=== PATIENT | female | born 1990 | race Caucasian/White ===

== ENCOUNTER 2016-08-10 08:34 | Observation (INO) | payer OTHER ==
[~2016-08-10] VITALS: Ht 165.1 cm; Wt 58.1 kg
[2016-08-10] VITALS (9 sets, daily range): BP systolic 97–129; BP diastolic 52–79
[~2016-08-10 08:34] MED LIST: CLARITIN10 M2 PO; IBUPROFEN 600600 M1 PO; NOHOMEMEDICATIONS; NORCO 5-325 TA1 EACH PO; ONDANSETRON HCL4 M2 PO; PRENATAL PO; VENTOLIN17 GM INH; VICOPROFEN 2001 EACH PO; VITAFOL-OB+DHA1 EACH PO
[2016-08-10 09:15] LABS: URINE BILIRUBIN NEGATIVE (Negative); URINE BLOOD TRACE (Negative); URINE COLOR YELLOW; URINE GLUCOSE-RANDOM* NEGATIVE (Negative); URINE KETONES NEGATIVE (Negative); URINE LEUKOCYTES-REFLEX TRACE (Negative); URINE PROTEIN (DIPSTICK) NEGATIVE (Negative); URINE UROBILINOGEN 0.2 E.U./dl (0.2-1.0)
[2016-08-10 09:25] LABS: ABSOLUTE NEUTROPHILS 3.1 thou/uL (1.4-8.2); BASOPHILS 0.8 % (0.0-2.0); EOSINOPHILS 3.8 % (0.0-3.0); HEMATOCRIT 37.8 % (37.0-47.0); HEMOGLOBIN 12.9 gm/dL (12.0-15.0); LYMPHOCYTES 23.9 % (24.0-44.0); MCH 29.2 pg (26.0-34.0); MCV 85.9 fL (80.0-100.0); MONOCYTES 9.2 % (1.0-8.0); PLATELET COUNT 230 thou/uL (150-400); POLYS 62.3 % (36.0-66.0)
[2016-08-10 09:27] LABS: MANUAL DIFF NO
[2016-08-10 09:34] LABS: CALCIUM 9.1 mg/dL (8.5-10.1); CREATININE 0.7 mg/dL (0.6-1.0); POTASSIUM 3.9 mmol/L (3.5-5.1)
[2016-08-10 09:40] LABS: ALBUMIN 4.6 g/dL (3.4-5.0); TOTAL BILIRUBIN 0.4 mg/dL (<0.1-1.0)
[2016-08-10] MEDS ORDERED: PRILOSEC 20 MG20 MG PO (10:10)
[2016-08-10] MEDS ORDERED: ZOFRAN ODT8 MG PO (10:10)
[2016-08-10] MEDS ORDERED: TRAMADOL 50 MG50 MG PO (10:10)
[2016-08-11 04:00] VITALS: BP 113/52
[2016-08-11 04:48] LABS: HEMATOCRIT 34.4 % (37.0-47.0); HEMOGLOBIN 11.4 gm/dL (12.0-15.0); MCHC 33.2 g/dL (28.0-37.0); MCV 87.4 fL (80.0-100.0); RBC 3.93 mil/uL (4.20-5.00); RDW 14.1 % (10.5-14.5); WBC 5.4 thou/uL (4.0-11.0)
[2016-08-11 04:55] LABS: CALCIUM 8.4 mg/dL (8.5-10.1); CREATININE 0.8 mg/dL (0.6-1.0); POTASSIUM 3.7 mmol/L (3.5-5.1)
[2016-08-11 08:26] VITALS: BP 111/58
[2016-08-11 10:22] VITALS: BP 111/58
== END 2016-08-11 10:37 | disposition home or self-care (01) ==
LOC: ER 08:34 → EROBS 12:16 → 5S 12:40
PROVIDERS: Emergency Medicine; Hospitalist
DX: R10.9 Unspecified abdominal pain (principal); F41.9 Anxiety disorder, unspecified; F31.9 Bipolar disorder, unspecified; Z87.442 Personal history of urinary calculi